=== PATIENT | male | born 1970 | race Caucasian/White ===

== ENCOUNTER 2019-12-25 13:31 | Emergency (ER) | payer OTHER ==
[2019-12-25] MEDS ORDERED: ACETAMINOPHEN 500 MG TAB ONE (13:58)
[2019-12-25] MEDS ORDERED: dexAMETHasone 10 MG/ML VIAL ONE (15:04)
[2019-12-25] MEDS ORDERED: NA CHLORIDE 0.9% 500 ML ONE (15:04)
[2019-12-25 15:43] LABS: Basophils % 0.2 % (0-1.3); Hematocrit 44.9 % (39.6-49.0); Lymphocytes % 12.8 % (15.3-44.8); MPV 8.4 fL (7.6-11.3); RBC Red Blood Cell Count 5.02 M/uL (4.33-5.43)
[2019-12-25 15:44] LABS: ALT/SGPT 38 U/L (12-78); AST/SGOT 30 U/L (15-37); Albumin 3.9 g/dL (3.4-5.0); Alkaline Phosphatase 56 U/L (45-117); BUN Blood Urea Nitrogen 15 mg/dL (7-18); Bicarbonate 26 mmol/L (21-32); Bilirubin Direct 0.3 mg/dL (0-0.2); Bilirubin Total 1.1 mg/dL (0.2-1.0); Ferritin 1565.1 ng/mL (26-388); Glucose Level 95 mg/dL (74-106); Potassium 3.6 mmol/L (3.5-5.1); Protein, Total 8.2 g/dL (6.4-8.2); Sodium Level 140 mmol/L (136-145); Troponin (Emerg Dept Use Only) < 0.02 ng/mL (0.0-0.045)
--- NOTE | 2019-12-25 16:22 | RAD REPORT ---
EXAM DESCRIPTION: RAD - Chest Single View - 12/25/2019 4:01 pm CLINICAL HISTORY: Chest pain;Cough;Dyspnea, positive COVID study December 15 COMPARISON: Two view chest September 29 TECHNIQUE: AP portable chest image was obtained 12/25/2019 4:01 pm . FINDINGS: No dense consolidations seen. Patient has low lung volumes. Patchy airspace changes are ev ident in the left lung field and minimally in the right lung field. In a patient with positive COVID- 19 test, findings are concerning for a mild or early COVID-19 pneumonia. No failure or volume overload. Heart and vasculature are normal. No measurable pleural effusion and n o pneumothorax. No acute bony abnormality seen. No acute aortic findings suspected. IMPRESSION: No dense mass or consolidation. Patient does have some minimal airspace disease. In the setting of a positive COVID-19 test, findings are concerning for early COVID-19 pneumonia.
--- NOTE | 2019-12-25 17:11 | RAD REPORT ---
EXAM DESCRIPTION: CT - Chest For Pe Angio - 12/25/2019 4:51 pm CLINICAL HISTORY: CHEST PAIN COMPARISON: No comparisons TECHNIQUE: Dynamically enhanced 3 mm thick images of the chest were obtained during administration o f approximately 150mL Isovue 370 IV contrast. Coronal and oblique MIP reconstruction images were gene rated and reviewed. Exam utilizes a protocol to evaluate the pulmonary arterial tree. All CT scans are performed using dose optimization technique as appropriate and may include automated exposure control or mA/KV adjustment according to patient size. FINDINGS: No pulmonary emboli are identified. The aorta as imaged shows no acute or suspicious finding. No pericardial thickening or effusion. Interstitial opacification is present in the lung huitron. Numerous areas of ground-glass opacificatio n and airspace consolidation seen in the bilateral upper lobes and bilateral lower lobes. Right middl e lobe is generally spared. Opacification is more peripheral than central. Pattern is well described in COVID-19 pneumonia. No cavitation or suspicious mass lesion. No pleural effusion or pleural thicke mercedes. No mediastinal or hilar suspicious masses. No chest wall masses or abnormal axillary lymphadenopathy. IMPRESSION: No pulmonary emboli identified. Bilateral airspace opacification pattern. This pattern is well described in COVID-19 pneumonia.
[2019-12-25 17:33] LABS: Blood Morphology Comment NOT SEEN (NOT SEEN); Platelet Estimate ADEQ; White Blood Cell Scan OK (OK)
--- NOTE | 2019-12-25 17:35 | ER ---
Nurse's Notes [facility] Name: Sony Borjas Age: 49 yrs Sex: Male : 1970 Arrival Date: 12/25/2019 Time: 13:33 Bed 30 Private MD: Diagnosis: Coronavirus infection, unspecified;Viral pneumonia, unspecified Presentation: 12/24 13:38 Chief complaint: Patient states: COVID+ 12/16/2019. Fever, cough and SOB with exertion ca1 has gotten worse. Htemp Last night was 103.7F. Chest hurts to take a big breath. Just feel worse. Took Tylenol at 0900. Coronavirus screen: chills, cough unrelated to allergies, diarrhea, difficulty breathing, fatigue, fever, headache, muscle pain, nausea, shortness of breath, loss of taste or smell, Client presents with at least one sign or symptom that may indicate coronavirus-19. Standard/surgical mask placed on the client. Provider contacted for isolation considerations. Client reports previous positive COVID test result. Date of collection: December 16, 2019 Staff notified of need for isolation. Ebola Screen: Patient negative for fever greater than or equal to 101.5 degrees Fahrenheit, and additional compatible Ebola Virus Disease symptoms Patient denies exposure to infectious person. Patient denies travel to an Ebola-affected area in the 21 days before illness onset. No symptoms or risks identified at this time. Initial Sepsis Screen: Does the patient meet any 2 criteria? No. Patient's initial sepsis screen is negative. Does the patient have a suspected source of infection? No. Patient's initial sepsis screen is negative. Risk Assessment: Do you want to hurt yourself or someone else? Patient reports no desire to harm self or others. Onset of symptoms was December 25, 2019. 13:38 Method Of Arrival: Ambulatory ca1 13:38 Acuity: BALDO 3 ca1 Historical: - Allergies: 13:43 No Known Allergies; ca1 - Home Meds: 13:43 None [Active]; ca1 - PMHx: 13:43 None; ca1 - PSHx: 13:43 None; ca1 - Immunization history:: Adult Immunizations up to date. - Social history:: Smoking status: Patient denies any tobacco usage or history of. - Family history:: not pertinent. - Hospitalizations: : No recent hospitalization is reported. Screenin:00 Abuse screen: Denies threats or abuse. Denies injuries from another. Nutritional jl7 screening: No deficits noted. Tuberculosis screening: No symptoms or risk factors identified. Fall Risk IV access (20 points). Total Arzola Fall Scale indicates No Risk (0-24 pts). Assessment: 15:00 General: Appears in no apparent distress. uncomfortable, Behavior is calm, cooperative, jl7 appropriate for age. Pain: Complains of pain in all over Quality of pain is described as aching. Neuro: Level of Consciousness is awake, alert, obeys commands, Oriented to person, place, time, situation. Cardiovascular: Denies chest pain, Rhythm is regular. Respiratory: Airway is patent Respiratory effort is even, unlabored, Respiratory pattern is regular, symmetrical, not auscultated. Derm: Skin is diaphoretic, Skin is normal, Skin temperature is warm. 16:00 Reassessment: Patient appears in no apparent distress at this time. No changes from jl7 previously documented assessment. Patient and/or family updated on plan of care and expected duration. Pain level reassessed. Patient is alert, oriented x 3, equal unlabored respirations, skin warm/dry/pink. 17:00 Reassessment: Patient appears in no apparent distress at this time. No changes from jl7 previously documented assessment. Patient and/or family updated on plan of care and expected duration. Pain level reassessed. Patient is alert, oriented x 3, equal unlabored respirations, skin warm/dry/pink. Vital Signs: 13:38 BP 118 / 83; Pulse 105; Resp 20; Temp 101.5(O); Pulse Ox 95% on R/A; Weight 108.86 kg ca1 (R); Height 5 ft. 6 in. (167.64 cm) (R); 16:00 BP 110 / 73; Pulse 90; Resp 19 S; Pulse Ox 96% on R/A; jl7 17:46 BP 112 / 76; Pulse 83; Resp 15; Pulse Ox 94% ; jl7 13:38 Body Mass Index 38.74 (108.86 kg, 167.64 cm) ca1 ED Course: 13:33 Patient arrived in ED. ag5 13:43 Triage completed. ca1 13:43 Arm band placed on right wrist. ca1 14:38 Raman Mari MD is Attending Physician. rn 14:50 Garrett Christina, RN is Primary Nurse. jl7 15:10 Inserted saline lock: 20 gauge in right antecubital area, using aseptic technique. jl7 Blood collected. 15:10 Initial lab(s) drawn, by me, sent to lab. First set of blood cultures drawn by me. jl7 16:00 Patient has correct armband on for positive identification. Placed in gown. Bed in low jl7 position. Call light in reach. Side rails up X 1. groundwater monitoring technician on. Pulse ox on. NIBP on. Warm blanket given. 16:01 CXR XRAY In Process Unspecified. EDMS 16:10 Second set of blood cultures drawn by me. jl7 16:51 CT Chest For PE Angio In Process Unspecified. EDMS 17:47 No provider procedures requiring assistance completed. IV discontinued, intact, jl7 bleeding controlled, No redness/swelling at site. Pressure dressing applied. Administered Medications: 13:48 Drug: Tylenol 1000 mg Route: PO; ca1 16:14 Follow up: Response: No adverse reaction; Temperature is decreased jl7 15:10 Drug: NS 0.9% 500 ml Route: IV; Rate: bolus; Site: right antecubital; jl7 16:14 Follow up: Response: No adverse reaction; IV Status: Completed infusion; IV Intake: jl7 500ml 15:10 Drug: Decadron - Dexamethasone 10 mg Route: IVP; Site: right antecubital; jl7 16:14 Follow up: Response: No adverse reaction jl7 Intake: 16:14 IV: 500ml; Total: 500ml. jl7 Outcome: 17:35 Discharge ordered by . rn 17:47 Discharged to home ambulatory. jl7 17:47 Condition: stable 17:47 Discharge instructions given to patient, Instructed on discharge instructions, follow up and referral plans. medication usage, Demonstrated understanding of instructions, follow-up care, medications, Prescriptions given X 2. 17:48 Patient left the ED. jl7 Signatures: Dispatcher [employer] EDMS Raman Mari MD MD rn Leal, Jahala, RN RN jl7 Anila Calzada RN RN ca1 Rodney, Misa ag5 Corrections: (The following items were deleted from the chart) 13:44 13:38 Chief complaint: Patient states: COVID+ 12/16/2019. Fever, cough and SOB with ca1 exertion has gotten worse. Htemp Last night was 103.7F. Chest hurts to take a big breath. Just feel worse. ca1 16:13 15:00 BP 110 / 73; Pulse 90bpm; Resp 19bpm; Spontaneous; Pulse Ox 96% RA; jl7 jl7
--- NOTE | 2019-12-25 17:36 | EDPHYS ---
Physician Documentation [facility] Name: Sony Borjas Age: 49 yrs Sex: Male : 1970 Arrival Date: 12/25/2019 Time: 13:33 Bed 30 Private MD: ED Physician Raman Mari HPI: 12/24 15:19 This 49 yrs old Male presents to ER via Ambulatory with complaints of Fever, rn Breathing Difficulty, COVID+. 15:19 The patient reports fever, that was measured at 103 degrees Fahrenheit. Onset: The rn symptoms/episode began/occurred 2 week(s) ago. Modifying factors: there are no obvious modifying factors. Associated signs and symptoms: Pertinent positives: cough. Severity of symptoms: At their worst the symptoms were moderate in the emergency department the symptoms are unchanged. The patient has not experienced similar symptoms in the past. Reports diagnosed last week with COVID-19, felt like doing ok, got worse last few days, still high fever to 103s, + cough, + sob. . Historical: - Allergies: 13:43 No Known Allergies; ca1 - Home Meds: 13:43 None [Active]; ca1 - PMHx: 13:43 None; ca1 - PSHx: 13:43 None; ca1 - Immunization history:: Adult Immunizations up to date. - Social history:: Smoking status: Patient denies any tobacco usage or history of. - Family history:: not pertinent. - Hospitalizations: : No recent hospitalization is reported. ROS: 15:19 Constitutional: Negative for weight loss, ENT: Negative for injury, pain, and yarn carrier, Cardiovascular: Negative for palpitations, and edema, Respiratory: + sob and cough Abdomen/GI: Negative for abdominal pain, nausea, vomiting, diarrhea, and constipation, MS/Extremity: Negative for injury and deformity, Skin: Negative for injury, rash, and discoloration, Neuro: Negative for numbness, tingling, and seizure. Exam: 15:20 Constitutional: This is a well developed, well nourished patient who is awake, alert, rn and in no acute distress. Head/Face: Normocephalic, atraumatic. Eyes: Periorbital areas with no swelling, redness, or edema. Cardiovascular: Tachycardic, regular Respiratory: + mild tachypnea, no retractions Abdomen/GI: sof,t non-tender Skin: Warm, dry MS/ Extremity: No cyanosis. Neuro: Awake and alert, GCS 15 16:25 ECG was reviewed by the Attending Physician. rn Vital Signs: 13:38 BP 118 / 83; Pulse 105; Resp 20; Temp 101.5(O); Pulse Ox 95% on R/A; Weight 108.86 kg ca1 (R); Height 5 ft. 6 in. (167.64 cm) (R); 16:00 BP 110 / 73; Pulse 90; Resp 19 S; Pulse Ox 96% on R/A; jl7 17:46 BP 112 / 76; Pulse 83; Resp 15; Pulse Ox 94% ; jl7 13:38 Body Mass Index 38.74 (108.86 kg, 167.64 cm) ca1 MDM: 14:38 Patient medically screened. rn 17:27 Differential diagnosis: URI, pneumonia PE, COVID. Data reviewed: vital signs, nurses rn notes, lab test result(s), radiologic studies, CT scan, plain films, and as a result, I will discharge patient. Counseling: I had a detailed discussion with the patient and/or guardian regarding: the historical points, exam findings, and any diagnostic results supporting the discharge/admit diagnosis, lab results, radiology results, the need for outpatient follow up, to return to the emergency department if symptoms worsen or persist or if there are any questions or concerns that arise at home. Response to treatment: the patient's symptoms have mildly improved after treatment, and as a result, I will discharge patient. Special discussion: I discussed with the patient/guardian in detail that at this point there is no indication for admission to the hospital. It is understood, however, that if the symptoms persist or worsen the patient needs to return immediately for re-evaluation. ED course: Pt with COVID pneumonia, CT neg for PE, Oxygen 95-96%, will dc home with steroids and inhaler. . 12/24 14:40 Order name: Blood Culture Adult (2) rn 12/24 14:40 Order name: BMP; Complete Time: 15:58 rn 12/24 14:40 Order name: C-Reactive Protein; Complete Time: 15:58 rn 12/24 14:40 Order name: CBC with Diff rn 12/24 14:40 Order name: D-Dimer; Complete Time: 15:58 rn 12/24 14:40 Order name: Ferritin; Complete Time: 15:58 rn 12/24 14:40 Order name: Lactate; Complete Time: 15:58 rn 12/24 14:40 Order name: LFT's; Complete Time: 15:58 rn 12/24 14:40 Order name: Procalcitonin; Complete Time: 15:58 rn 12/24 14:40 Order name: Troponin (emerg Dept Use Only); Complete Time: 15:58 rn 12/24 14:40 Order name: CXR XRAY; Complete Time: 16:24 rn 12/24 16:25 Order name: CT Chest For PE Angio; Complete Time: 17:24 rn 12/24 17:33 Order name: CBC Smear Scan EDMS 12/24 14:40 Order name: EKG; Complete Time: 14:41 rn 12/24 14:40 Order name: Cardiac monitoring; Complete Time: 15:15 rn 12/24 14:40 Order name: Droplet/Contact Precautions; Complete Time: 15:15 rn 12/24 14:40 Order name: EKG - Nurse/Tech; Complete Time: 15:14 rn 12/24 14:40 Order name: IV Start; Complete Time: 15:14 rn 12/24 14:40 Order name: Labs collected and sent; Complete Time: 15:14 rn 12/24 14:40 Order name: O2 Per Protocol; Complete Time: 15:14 rn 12/24 14:40 Order name: O2 Sat Monitoring; Complete Time: 15:14 rn EC:25 Rate is 86 beats/min. Rhythm is regular. QRS [place] is Normal. RI interval is normal. QRS rn interval is normal. QT interval is normal. No Q waves. T waves are Normal. No ST changes noted. Clinical impression: Normal ECG. Interpreted by me. Reviewed by me. Administered Medications: 13:48 Drug: Tylenol 1000 mg Route: PO; ca1 16:14 Follow up: Response: No adverse reaction; Temperature is decreased jl7 15:10 Drug: NS 0.9% 500 ml Route: IV; Rate: bolus; Site: right antecubital; jl7 16:14 Follow up: Response: No adverse reaction; IV Status: Completed infusion; IV Intake: jl7 500ml 15:10 Drug: Decadron - Dexamethasone 10 mg Route: IVP; Site: right antecubital; jl7 16:14 Follow up: Response: No adverse reaction jl7 Disposition: 12/25/19 17:35 Discharged to Home. Impression: Coronavirus infection, unspecified, Viral pneumonia, unspecified. - Condition is Stable. - Discharge Instructions: Community-Acquired Pneumonia, Adult, COVID-19. - Prescriptions for dexamethasone 6 mg Oral tablet - take 1 tablet by ORAL route once daily for 10 days; 10 tablet. Albuterol Sulfate 90 mcg/actuation - inhale 1-2 puff by INHALATION route every 4-6 hours; 1 Inhaler. - Medication Reconciliation Form, Thank You Letter, Antibiotic Education, Prescription Opioid Use form. - Follow up: Private Physician; When: As needed; Reason: Recheck today's complaints, Re-evaluation by your physician. - Problem is new. - Symptoms have improved. Signatures: Dispatcher [employer] EDMS Raman Mari MD MD rn Leal, Jahala, RN RN jl7 Anila Calzada RN RN ca1 Corrections: (The following items were deleted from the chart) 15:21 15:19 Constitutional: Negative for weight loss, Cardiovascular: Negative for chest rn pain, palpitations, and edema, Respiratory: + sob and cough Abdomen/GI: Negative for abdominal pain, nausea, vomiting, diarrhea, and constipation, MS/Extremity: Negative for injury and deformity, Skin: Negative for injury, rash, and discoloration, Neuro: Negative for headache, numbness, tingling, and seizure, rn 17:48 17:35 12/25/2019 17:35 Discharged to Home. Impression: Coronavirus infection, jl7 unspecified; Viral pneumonia, unspecified. Condition is Stable. Forms are Medication Reconciliation Form, Thank You Letter, Antibiotic Education, Prescription Opioid Use. Follow up: Private Physician; When: As needed; Reason: Recheck today's complaints, Re-evaluation by your physician. Problem is new. Symptoms have improved. rn
[2019-12-25 18:44] VITALS: TEMP 101.5
[2019-12-25 18:46] VITALS: BP 112/76; O2SAT 94
--- NOTE | 2019-12-26 11:22 | EKG ---
Test Date: 2019-12-25 Test Time: 16:21:46 Saxophone Player: EULALIO MEASUREMENT RESULTS: Intervals: Rate: 86 HI: 168 QRSD: 112 QT: 372 QTc: 445 [place]: P: 44 HI: 168 QRS: 66 T: 36 INTERPRETIVE STATEMENTS: Normal sinus rhythm Normal ECG No previous ECG available for comparison Electronically Signed On 12-26-19 11:20:19 CDT by Chavez Swenson
== END 2019-12-25 17:48 | disposition home or self-care (01) ==
LOC: ER 13:31
DX: U07.1 COVID-19 (principal); J12.9 Viral pneumonia, unspecified
CPT/HCPCS: 96361; 93005; 87040 ×2; 85025; 80048; 36415; 85379; 80076; 83605; 84484; 82728; 84145; 86140; 71275; 71045; 96374; 99284; Q9967; J1100; J7040

== ENCOUNTER 2021-06-18 23:17 | Emergency (ER) | payer BC, OTHER ==
--- OUTSIDE RECORDS SUMMARY | 2021-06-18 23:19 | XMS REPORT | Continuity of Care Document ---
:1970 Author Organization [facility] t Address [address] [place] [address] [address] [place] [address] Care Team Providers Name Role Phone Unavailable Unavailable Unavailable Problems This patient has no known problems. Allergies, Adverse Reactions, Alerts This patient has no known allergies or adverse reactions. Medications This patient has no known medications. Procedures This patient has no known procedures. Encounters Start End Encounter Admission Attending Care Care Encounter Source Date/Time Date/Time Type Type Clinicians Facility Department ID 2021-06-17 2021-06-17 Outpatient PRIV PRIV [id number] 0-2 [facility] 01:34:00 01:34:00 [id number] Medica l Results This patient has no known results.
[2021-06-18] MEDS ORDERED: LORAZEPAM 0.5 MG TABLET ONE (23:59)
[2021-06-19 00:14] LABS: Protime INR 1.15
[2021-06-19 00:19] LABS: Absolute Lymphocytes (CBC) 2.4 K/uL (0.7-4.9); Hematocrit 45.1 % (39.6-49.0); Lymphocytes % 18.8 % (15.3-44.8); MPV 7.7 fL (7.6-11.3); RBC Red Blood Cell Count 5.05 M/uL (4.33-5.43)
[2021-06-19 00:34] LABS: ALT/SGPT 48 U/L (12-78); AST/SGOT 26 U/L (15-37); Albumin 4.1 g/dL (3.4-5.0); Alkaline Phosphatase 58 U/L (45-117); BUN Blood Urea Nitrogen 12 mg/dL (7-18); Bicarbonate 27 mmol/L (21-32); Bilirubin Direct 0.2 mg/dL (0-0.2); Bilirubin Total 0.7 mg/dL (0.2-1.0); Glucose Level 119 mg/dL (74-106); Magnesium 2.3 mg/dL (1.8-2.4); NT PRO-BNP 43 pg/mL (<125); Potassium 3.3 mmol/L (3.5-5.1); Protein, Total 7.9 g/dL (6.4-8.2); Sodium Level 137 mmol/L (136-145)
--- NOTE | 2021-06-19 01:36 | ER ---
Nurse's Notes [facility] Name: Sony Borjas Age: 51 yrs Sex: Male : 1970 Arrival Date: 06/18/2021 Time: 23:21 Bed 20 Private MD: Diagnosis: Chest pain, unspecified;Essential (primary) hypertension Presentation: 06/18 23:25 Chief complaint: Patient states: "I have had chest pain in the past before, but never tw5 this long. It is more of a pressure, not really pain. However when I took my blood pressure it was in the 180's and that is what is giving me concern.". Coronavirus screen: Vaccine status: Patient reports receiving the 2nd dose of the covid vaccine. [place]. Ebola Screen: Patient negative for fever greater than or equal to 101.5 degrees Fahrenheit, and additional compatible Ebola Virus Disease symptoms Patient denies exposure to infectious person. Patient denies travel to an Ebola-affected area in the 21 days before illness onset. Initial Sepsis Screen: Does the patient meet any 2 criteria? No. Patient's initial sepsis screen is negative. Does the patient have a suspected source of infection? No. Patient's initial sepsis screen is negative. Risk Assessment: Do you want to hurt yourself or someone else? Patient reports no desire to harm self or others. Onset of symptoms is unknown. 23:25 Method Of Arrival: Ambulatory tw5 23:25 Acuity: BALDO 2 tw5 Triage Assessment: 23:27 General: Appears in no apparent distress. Behavior is calm, cooperative, appropriate tw5 for age. Pain: Complains of pain in chest Pain currently is 4 out of 10 on a pain scale. Quality of pain is described as pressure. Cardiovascular: Patient's skin is warm and dry. Historical: - Allergies: 23:27 No Known Allergies; tw5 - PMHx: 23:27 None; tw5 - PSHx: 23:27 None; tw5 - Immunization history:: Flu vaccine is up to date. - Social history:: Smoking status: Patient denies any tobacco usage or history of. Screenin/06 00:14 Abuse screen: Denies threats or abuse. Nutritional screening: No deficits noted. vc1 Tuberculosis screening: No symptoms or risk factors identified. Fall Risk None identified. Assessment: 00:08 General: Appears in no apparent distress. comfortable, Behavior is calm, cooperative, vc1 appropriate for age. Pain: Complains of pain in chest Pain does not radiate. Pain began gradually, Is intermittent. Neuro: Level of Consciousness is awake, alert, obeys commands, Oriented to person, place, time, situation, Appropriate for age. 01:59 Reassessment: Patient and/or family updated on plan of care and expected duration. Pain vc1 level reassessed. Patient is alert, oriented x 3, equal unlabored respirations, skin warm/dry/pink. General: Appears in no apparent distress. comfortable, Behavior is calm, cooperative, appropriate for age. Neuro: Level of Consciousness is awake, alert, obeys commands, Oriented to person, place, time, situation, Appropriate for age. Vital Signs: 06/18 23:25 BP 174 / 93; Pulse 92; Resp 18; Temp 98.6; Pulse Ox 99% ; Weight 122.47 kg; Height 5 tw5 ft. 6 in. (167.64 cm); Pain 4/10; 06/19 00:30 BP 138 / 76; Pulse 92; Resp 20; Pulse Ox 95% on R/A; vc1 01:30 BP 143 / 89; Pulse 84; Resp 18; Pulse Ox 97% on R/A; Pain 0/10; vc1 06/18 23:25 Body Mass Index 43.58 (122.47 kg, 167.64 cm) tw5 ED Course: 06/18 23:21 Patient arrived in ED. ja2 23:27 Triage completed. tw5 23:27 Arm band placed on right wrist. tw5 23:30 Jeff Julian NP is PHCP. pm1 23:30 Cory Ross MD is Attending Physician. pm1 23:53 Teagan Spring, KAMILA is Primary Nurse. lp1 23:58 XRAY Chest (1 view) In Process Unspecified. EDMS 06/19 00:07 Initial lab(s) drawn, by me, sent to lab. Inserted saline lock: 20 gauge in right. lt3 00:14 Patient has correct armband on for positive identification. Bed in low position. Call vc1 light in reach. gas regulator repairer on. Pulse ox on. NIBP on. 00:15 Patient maintains SpO2 saturation greater than 95% on room air. vc1 02:21 No provider procedures requiring assistance completed. IV discontinued, intact, vc1 bleeding controlled, No redness/swelling at site. Pressure dressing applied. Administered Medications: 00:08 Drug: Ativan (LORazepam) 0.5 mg Route: PO; vc1 01:31 Follow up: Response: No adverse reaction; Marked relief of symptoms; Blood pressure is vc1 lowered 01:36 Drug: Potassium Chloride 40 mEq Route: PO; vc1 01:58 Follow up: Response: No adverse reaction vc1 Outcome: 01:36 Discharge ordered by MD. pm1 02:21 Discharged to home ambulatory. vc1 02:21 Condition: good 02:21 Discharge instructions given to patient, Instructed on discharge instructions, follow up and referral plans. Demonstrated understanding of instructions, follow-up care. 02:22 Patient left the ED. vc1 Signatures: Dispatcher [employer] EDTeagan Green RN RN lp1 Jeff Julian, SOCIAL SCIENCE PROFESSOR SOCIAL SCIENCE PROFESSOR pm1 Hanh Isabel 2 Yadira Borrero tw5 Lucita Sheets 3 Saranya Garcia RN RN vc1 Corrections: (The following items were deleted from the chart) [id number] 23:27 23:25 Pulse 92bpm; Resp 18bpm; Pulse Ox 99%; Temp 98.6F; 122.47 kg; Height 5 ft. 6 in.; tw5 BMI: 43.5; Pain 4/10; tw5
--- NOTE | 2021-06-19 01:36 | EDPHYS ---
Physician Documentation [facility] Name: Sony Borjas Age: 51 yrs Sex: Male : 1970 Arrival Date: 06/18/2021 Time: 23:21 Bed 20 Private MD: ED Physician Cory Ross HPI: 06/18 23:34 This 51 yrs old Male presents to ER via Ambulatory with complaints of Chest Tightness, pm1 High Blood Pressure, Anxiety. 23:34 The patient or guardian reports chest pain that is located primarily in the mid-sternal pm1 area. Onset: 3 week(s) ago, daily chest pain. Chest pain today onset 1200. The pain does not radiate. Associated signs and symptoms: Pertinent positives: Anxiety, decreased appetite, Pertinent negatives: abdominal pain, diaphoresis, headache, nausea, palpitations, shortness of breath, vomiting. The chest pain is described as burning. Duration: The patient or guardian reports multiple episodes. Modifying factors: the symptoms are aggravated by possibly anxiety. The patient has not recently seen a physician. Historical: - Allergies: 23:27 No Known Allergies; tw5 - PMHx: 23:27 None; tw5 - PSHx: 23:27 None; tw5 - Immunization history:: Flu vaccine is up to date. - Social history:: Smoking status: Patient denies any tobacco usage or history of. ROS: 23:34 Constitutional: Negative for fever, chills, and weight loss. pm1 23:34 Respiratory: Negative for shortness of breath, cough, wheezing, and pleuritic chest pain, Abdomen/GI: Negative for abdominal pain, nausea, vomiting, diarrhea, and constipation, Back: Negative for injury and pain, MS/Extremity: Negative for injury and deformity, Skin: Negative for injury, rash, and discoloration, Neuro: Negative for headache, weakness, numbness, tingling, and seizure. 23:34 Cardiovascular: Positive for chest pain. 23:34 Psych: Positive for anxiety, decreased appetite. 23:34 All other systems are negative. Exam: 23:34 Constitutional: This is a well developed, well nourished patient who is awake, alert, pm1 and in no acute distress. Head/Face: Normocephalic, atraumatic. 23:34 Back: No spinal tenderness. No costovertebral tenderness. Full range of motion. Skin: Warm, dry with normal turgor. Normal color with no rashes, no lesions, and no evidence of cellulitis. MS/ Extremity: Pulses equal, no cyanosis. Neurovascular intact. Full, normal range of motion. 23:34 ENT: Exam is negative for acute changes, Mouth: no acute changes, Lips: normal, moist, Oral mucosa: normal, pink and intact, moist. 23:34 Cardiovascular: Exam negative for acute changes, Rate: normal, Rhythm: regular, Pulses: no pulse deficits are appreciated, Heart sounds: normal, normal S1and S2. 23:34 Respiratory: Exam negative for acute changes, respiratory distress, shortness of breath, Breath sounds: are clear throughout. 23:34 Abdomen/GI: Inspection: obese Palpation: abdomen is soft and non-tender, in all quadrants. 23:34 Neuro: Exam negative for acute changes, Orientation: is normal, Mentation: is normal, Motor: is normal, moves all fours. Vital Signs: 23:25 BP 174 / 93; Pulse 92; Resp 18; Temp 98.6; Pulse Ox 99% ; Weight 122.47 kg; Height 5 tw5 ft. 6 in. (167.64 cm); Pain 4/10; 06/19 00:30 BP 138 / 76; Pulse 92; Resp 20; Pulse Ox 95% on R/A; vc1 01:30 BP 143 / 89; Pulse 84; Resp 18; Pulse Ox 97% on R/A; Pain 0/10; vc1 03 23:25 Body Mass Index 43.58 (122.47 kg, 167.64 cm) tw5 MDM: 06/18 23:33 Patient medically screened. pm1 06/19 01:34 Data reviewed: vital signs. Data interpreted: Pulse oximetry: on room air is 95 %. pm1 Interpretation: normal. Counseling: I had a detailed discussion with the patient and/or guardian regarding: the historical points, exam findings, and any diagnostic results supporting the discharge/admit diagnosis, lab results, radiology results, the need for outpatient follow up, to return to the emergency department if symptoms worsen or persist or if there are any questions or concerns that arise at home. 02:06 ED course: Patient with anxiety driven over fears of dying for the past 3 weeks. He is pm1 worried about leaving his family, kids if he dies. His father around his age. Patient has not discussed his feelings with his and has had changes in work and life balance. Advised open communication with his family and follow up with PCP for further evaluation of stress and hypertension. 06/18 23:31 Order name: Basic Metabolic Panel; Complete Time: 01:05 pm1 06/18 23:31 Order name: CBC with Diff; Complete Time: 01:05 pm1 06/18 23:31 Order name: LFT's; Complete Time: 01:05 pm1 06/18 23:31 Order name: Magnesium; Complete Time: 01:05 pm1 06/18 23:31 Order name: NT PRO-BNP; Complete Time: 01:05 pm1 06/18 23:31 Order name: PT-INR; Complete Time: 00:16 pm1 06/18 23:31 Order name: Troponin HS; Complete Time: 01:05 pm1 03 23:31 Order name: XRAY Chest (1 view) pm1 06/18 23:31 Order name: EKG; Complete Time: 23:31 pm1 03 23:31 Order name: Cardiac monitoring; Complete Time: 23:57 pm1 06/18 23:31 Order name: EKG - Nurse/Tech; Complete Time: 23:57 pm1 06/18 23:31 Order name: IV Saline Lock; Complete Time: 00:07 pm1 03 23:31 Order name: Labs collected and sent; Complete Time: 00:07 pm1 06/18 23:31 Order name: O2 Per Protocol; Complete Time: 00:08 pm1 06/18 23:31 Order name: O2 Sat Monitoring; Complete Time: 00:08 pm1 Administered Medications: 00:08 Drug: Ativan (LORazepam) 0.5 mg Route: PO; vc1 01:31 Follow up: Response: No adverse reaction; Marked relief of symptoms; Blood pressure is vc1 lowered 01:36 Drug: Potassium Chloride 40 mEq Route: PO; vc1 01:58 Follow up: Response: No adverse reaction vc1 Disposition: 05:49 Co-signature as Attending Physician, Cory Ross MD. [email or web address] Disposition Summary: 06/19/21 01:36 Discharge Ordered Location: Home pm1 Problem: new pm1 Symptoms: have improved pm1 Condition: Stable pm1 Diagnosis - Chest pain, unspecified pm1 - Essential (primary) hypertension pm1 Followup: pm1 - With: Emergency Department - When: As needed - Reason: Worsening of condition Followup: pm1 - With: Private Physician - When: 2 - 3 days - Reason: Recheck today's complaints, Continuance of care, Re-evaluation by your physician Discharge Instructions: - Discharge Summary Sheet pm1 - Nonspecific Chest Pain, Adult pm1 - Hypertension, Adult pm1 - How to Take Your Blood Pressure, [id number] pm1 - DASH Eating Plan pm1 - Managing Your Hypertension pm1 Forms: - Medication Reconciliation Form pm1 - Thank You Letter pm1 - Antibiotic Education pm1 - Prescription Opioid Use pm1 Prescriptions: - Hydroxyzine HCl 25 mg Oral Tablet - take 1 tablet by ORAL route every 6 hours As needed; 30 tablet; Refills: 0, pm1 Product Selection Permitted Addendum: 06/20/2021 22:46 Addendum: Patient requesting hydroxyzine, medication for anxiety, that he attributed to p m1 his ER visit chest pain. Will prescribe the patient the medication. Signatures: Dispatcher [employer] Jeff Parra, DIRECTOR INSTITUTION DIRECTOR INSTITUTION pm1 Cory Ross MD MD 7 Yadira Borrero tw5 Saranya Garcia RN RN vc1
[2021-06-19] MEDS ORDERED: POTASSIUM CL SA 10 MEQ TAB PO ONE (01:37)
[2021-06-19 02:27] VITALS: TEMP 98.6
[2021-06-19 02:30] VITALS: BP 143/89; O2SAT 97
--- NOTE | 2021-06-19 07:59 | RAD REPORT ---
EXAM DESCRIPTION: RAD - Chest Single View - 06/18/2021 11:58 pm CLINICAL HISTORY: CHEST PAIN COMPARISON: Portable 12/25/2019 TECHNIQUE: AP portable chest image was obtained 06/18/2021 11:58 pm . FINDINGS: No peripheral mass or consolidation. Interstitial markings and central vasculature are fra ctionally increased over the 2020 comparison. Heart size is normal range for portable imaging and sta ble. No measurable pleural effusion and no pneumothorax. No acute bony abnormality seen. No acute aortic findings suspected. IMPRESSION: Slight increase in the central vasculature and lung markings. No cardiomegaly. Correlation is needed with any findings of early edema or infiltrate.
--- NOTE | 2021-06-19 09:23 | EKG ---
Test Date: 2021-06-18 Test Time: 23:51:08 Centerpuncher: BHAVYA MEASUREMENT RESULTS: Intervals: Rate: 93 KS: 164 QRSD: 116 QT: 364 QTc: 452 [place]: P: 41 KS: 164 QRS: 9 T: 33 INTERPRETIVE STATEMENTS: Sinus rhythm with premature supraventricular complexes Incomplete right bundle branch block Borderline ECG Compared to ECG 12/25/2019 16:21:46 Atrial premature complex(es) now present Incomplete right bundle-branch block now present Electronically Signed On 06-19-21 09:22:42 CERAMIC TILE INSTALLATION HELPER by Chavez Swenson
== END 2021-06-19 02:22 | disposition home or self-care (01) ==
LOC: ER 23:17
DX: I10 Essential (primary) hypertension (principal)
CPT/HCPCS: 36415; 71045; 80048; 80076; 83735; 83880; 84484; 85025; 85610; 93005; 99285

== ENCOUNTER 2022-04-04 15:32 | Observation (INO) | payer BC ==
--- OUTSIDE RECORDS SUMMARY | 2022-04-04 15:34 | XMS REPORT | Continuity of Care Document ---
:[address] [facility] t Address [address] [place] [address] Care Team Providers Name Role Phone Yogesh Brito Attending Clinician Unavailable Charly Farias Attending Clinician [phone] Payers Payer Name Policy Type Policy Number Effective Date Expiration Date S malou [employer] 6 [id number] 2021 [facility] 00:00:00 - [facility]: [facility] [id number] 2021 [facility] (PPO) 00:00:00 Problems Condition Condition Condition Status Onset Resolution Last Treating Co mments Source Name Details Category Date Date Treatment Clinician Date Morbid Morbid Problem Active [facility] obesity Obesity 4-10 Medical 00:00: 00 [id number] Essential Problem Comm on (primary) Spirit hypertensi - [facility] on [facility] [id number] Generalize Problem Com mon d anxiety Spirit disorder - [facility] [id number] Panic Problem Common disorder Spirit [episodic - [facility] paroxysmal anxiety] [facility] [id number] Body mass Problem Com mon index Spirit [BMI] - [facility] 40.0-44.9, [facility] [id number] 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 [id number] Erectile Problem Comm on dysfunctio Spirit n, - [facility] unspecifie [facility] d erectile kes dysfunctio Medica l n type Center [id number] Morbid Problem Commo n 9104 (severe) [facility] obesity - [facility] due to [facility] [id number] Mixed Problem Common hyperlipid [facility] emia [facility] Allergies, Adverse Reactions, Alerts This patient has no known allergies or adverse reactions. Social History Social Habit Start Date Stop Date Quantity Comments Source History of Tobacco Use Co mmon [facility] Sex Assigned At Com mon [facility] Smoking Status Start Date Stop Date Source Never Smoker Common [facility] Medications Ordered Filled Start Stop Current Ordering Indication Dosage Frequency Signature Comments Components Source Medication Medication Date Date Medication? Clinician (SIG) Name Name Nathan Evans 5 2021-04- No Mounjaro 5 MG/0.5ML MG/0.5ML -17 01-21 MG/0.5ML 00:00: 00:00 00 :00 Nathan 5 Nathan 5 2021-04- No Mounjaro 5 MG/0.5ML MG/0.5ML -17 12-15 MG/0.5ML 00:00: 00:00 00 :00 Ondansetron Ondansetron 2021-04 No 1{table Ondansetro HCl 4 MG HCl 4 MG - t_as_ne n HCl 4 MG 00:00: eded} 00 Ondansetron Ondansetron 2021-04 No 1{table Ondansetro HCl 4 MG HCl 4 MG - t_as_ne n HCl 4 MG 00:00: eded} 00 Ondansetron Ondansetron 2021-04 No 1{table Ondansetro HCl 4 MG HCl 4 MG 1-02 t_as_ne n HCl 4 MG 00:00: eded} 00 Nathan Evans 2021-04- No Mounjaro 2.5 2.5 0-17 11-15 2.5 MG/0.5ML MG/0.5ML 00:00: 00:00 MG/0.5ML 00 :00 Tamsulosin Tamsulosin 2021-04- No 1{capsu QD Tamsulosin HCl 0.4 MG HCl 0.4 MG 0-17 11-15 le} HCl 0.4 MG 00:00: 00:00 00 :00 Nathan Pattersonro 2021-04- No Yeseniaro 2.5 2.5 0-17 11-15 2.5 MG/0.5ML MG/0.5ML 00:00: 00:00 MG/0.5ML 00 :00 Tamsulosin Tamsulosin 2021-042- No 1{capsu QD Tamsulosin HCl 0.4 MG HCl 0.4 MG 0-17 11-15 le} HCl 0.4 MG 00:00: 00:00 00 :00 Nathan Pattersonro 2021-04- No Yeseniaro 2.5 2.5 0-17 11-15 2.5 MG/0.5ML MG/0.5ML 00:00: 00:00 MG/0.5ML 00 :00 Tamsulosin Tamsulosin 2021-04- No 1{capsu QD Tamsulosin HCl 0.4 MG HCl 0.4 MG 0-17 11-15 le} HCl 0.4 MG 00:00: 00:00 00 :00 Phentermine Phentermine 2-0 No 1{capsu QD Phentermin HCl 37.5 MG HCl 37.5 MG 9-14 le} e HCl 37.5 00:00: MG 00 Phentermine Phentermine 2-0 No 1{capsu QD Phentermin HCl 30 MG HCl 30 MG 8-18 le} e HCl 30 00:00: MG 00 Phentermine Phentermine 2-0 No 1{capsu QD Phentermin HCl 30 MG HCl 30 MG 8-18 le} e HCl 30 00:00: MG 00 Phentermine Phentermine 2021-0 2- No QD Phentermin HCl 15 MG HCl 15 MG 7-28 08-27 e HCl 15 00:00: 00:00 MG 00 :00 hydrOXYzine hydrOXYzine No 1{table QD hydrOXYzin HCl 50 MG HCl 50 MG t_at_be e HCl 50 dtime_a MG s_neede d} Propranolol Propranolol No 1{table QD Propranolo HCl 40 MG HCl 40 MG t} l HCl 40 MG hydrOXYzine hydrOXYzine No 1{table QD hydrOXYzin HCl 50 MG HCl 50 MG t_at_be e HCl 50 dtime_a MG s_neede d} Propranolol Propranolol No 1{table QD Propranolo HCl 40 MG HCl 40 MG t} l HCl 40 MG Propranolol Propranolol No 1{table QD Propranolo HCl 40 MG HCl 40 MG t} l HCl 40 MG hydrOXYzine hydrOXYzine No 1{table QD hydrOXYzin HCl 50 MG HCl 50 MG t_at_be e HCl 50 dtime_a MG s_neede d} Propranolol Propranolol No 1{table QD Propranolo HCl 40 MG HCl 40 MG t} l HCl 40 MG hydrOXYzine hydrOXYzine No 1{table QD hydrOXYzin HCl 50 MG HCl 50 MG t_at_be e HCl 50 dtime_a MG s_neede d} Propranolol Propranolol No Propranolo HCl 40 MG HCl 40 MG l HCl 40 MG hydrOXYzine hydrOXYzine No 1{table QD hydrOXYzin HCl 50 MG HCl 50 MG t_at_be e HCl 50 dtime_a MG s_neede d} Propranolol Propranolol No Propranolo HCl 40 MG HCl 40 MG l HCl 40 MG Tamsulosin Tamsulosin No Tamsulosin HCl 0.4 MG HCl 0.4 MG HCl 0.4 MG hydrOXYzine hydrOXYzine No 1{table QD hydrOXYzin HCl 50 MG HCl 50 MG t_at_be e HCl 50 dtime_a MG s_neede d} Propranolol Propranolol No 1{table QD Propranolo HCl 40 MG HCl 40 MG t} l HCl 40 MG Tadalafil Tadalafil No 1{table QD Tadalafil 2.5 MG 2.5 MG t} 2.5 MG Propranolol Propranolol No Propranolo HCl 40 MG HCl 40 MG l HCl 40 MG hydrOXYzine hydrOXYzine No 1{table QD hydrOXYzin HCl 50 MG HCl 50 MG t_at_be e HCl 50 dtime_a MG s_neede d} Tamsulosin Tamsulosin No Tamsulosin HCl 0.4 MG HCl 0.4 MG HCl 0.4 MG Propranolol Propranolol No 1{table QD Propranolo HCl 40 MG HCl 40 MG t} l HCl 40 MG hydrOXYzine hydrOXYzine No 1{table QD hydrOXYzin HCl 50 MG HCl 50 MG t_at_be e HCl 50 dtime_a MG s_neede d} hydrOXYzine hydrOXYzine No 1{table QD hydrOXYzin HCl 50 MG HCl 50 MG t_at_be e HCl 50 dtime_a MG s_neede d} Propranolol Propranolol No 1.5{tab QD Propranolo HCl 20 MG HCl 20 MG let} l HCl 20 MG hydrOXYzine hydrOXYzine No 1{table QD hydrOXYzin HCl 50 MG HCl 50 MG t_at_be e HCl 50 dtime_a MG s_neede d} Propranolol Propranolol No 1{table QD Propranolo HCl 40 MG HCl 40 MG t} l HCl 40 MG Propranolol Propranolol No Propranolo HCl 20 MG HCl 20 MG l HCl 20 MG hydroxyzine hydroxyzine No 1 hydroxyzin [facility] HCl 50 mg HCl 50 mg e HCl 50 M edical tablet Take tablet Take mg tablet 1 tablet as 1 tablet as Take 1 needed by needed by tablet as oral route oral route needed by at bedtime at bedtime oral route for 30 for 30 at bedtime days. days. for 30 days. sertraline sertraline No 1 Q1D sertraline [facility] 25 mg 25 mg 25 mg Medical tablet Take tablet Take tablet 1 tablet 1 tablet Take 1 every day every day tablet by oral by oral every day route for route for by oral 30 days. 30 days. route for 30 days. tadalafil tadalafil No 1 Q1D tadalafil [facility] 2.5 mg 2.5 mg 2.5 mg Medical tablet Take tablet Take tablet 1 tablet 1 tablet Take 1 every day every day tablet by oral by oral every day route for route for by oral 90 days. 90 days. route for 90 days. Tadalafil Tadalafil 3- No 1{table QD Tadalafil 2.5 MG 2.5 MG -15 t} 2.5 MG 00:00 :00 Tadalafil Tadalafil 3- No 1{table QD Tadalafil 2.5 MG 2.5 MG 15 t} 2.5 MG 00:00 :00 Tadalafil Tadalafil 3- No 1{table QD Tadalafil 2.5 MG 2.5 MG 15 t} 2.5 MG 00:00 :00 Tadalafil Tadalafil 3- No 1{table QD Tadalafil 2.5 MG 2.5 MG -15 t} 2.5 MG 00:00 :00 Tadalafil Tadalafil 2021- No 1{table QD Tadalafil 2.5 MG 2.5 MG 01-11 t} 2.5 MG 00:00 :00 Tadalafil Tadalafil 2021- No 1{table QD Tadalafil 2.5 MG 2.5 MG 01-11 t} 2.5 MG 00:00 :00 Tadalafil Tadalafil 2021- No 1{table QD Tadalafil 2.5 MG 2.5 MG 01-11 t} 2.5 MG 00:00 :00 Tadalafil Tadalafil 2021- No 1{table QD Tadalafil 2.5 MG 2.5 MG 01-11 t} 2.5 MG 00:00 :00 Tadalafil Tadalafil 2021- No 1{table QD Tadalafil 2.5 MG 2.5 MG 01-11 t} 2.5 MG 00:00 :00 Vital Signs Vital Name Observation Time Observation Value Comments Source height 2022-03-07 13:20:00 66.5 [in_i] [facility] weight 2022-03-07 13:20:00 251.1 [lb_av] [facility] temperature 2022-03-07 13:20:00 97.2 [degF] [facility] bmi 2022-03-07 13:20:00 39.92 kg/m2 [facility] oximetry 2022-03-07 13:20:00 98 % [facility] respiratory rate 2022-03-07 13:20:00 18 /min Comm on [facility] blood pressure 2022-03-07 13:20:00 115 mm[Hg] Common [facility] - systolic [facility] blood pressure 2022-03-07 13:20:00 72 mm[Hg] Common [facility] - diastolic [facility] height 2022-01-30 10:40:00 66.5 [in_i] [facility] weight 2022-01-30 10:40:00 268.1 [lb_av] [facility] temperature 2022-01-30 10:40:00 97.6 [degF] [facility] bmi 2022-01-30 10:40:00 42.62 kg/m2 [facility] oximetry 2022-01-30 10:40:00 97 % Common [facility] respiratory rate 2022-01-30 10:40:00 17 /min Comm on [facility] blood pressure 2022-01-30 10:40:00 134 mm[Hg] Common [facility] - systolic [facility] blood pressure 2022-01-30 10:40:00 72 mm[Hg] Common [facility] - diastolic [facility] height 2021-12-28 10:00:00 66.5 [in_i] Common [facility] weight 2021-12-28 10:00:00 269.7 [lb_av] [facility] temperature 2021-12-28 10:00:00 98.0 [degF] Common [facility] bmi 2021-12-28 10:00:00 42.87 kg/m2 [facility] oximetry 2021-12-28 10:00:00 98 % [facility] respiratory rate 2021-12-28 10:00:00 18 /min Comm on [facility] blood pressure 2021-12-28 10:00:00 137 mm[Hg] Common [facility] - systolic [facility] blood pressure 2021-12-28 10:00:00 82 mm[Hg] Common [facility] - diastolic [facility] height 2021-12-01 09:40:00 66.5 [in_i] Common [facility] weight 2021-12-01 09:40:00 268 [lb_av] [facility] [place] temperature 2021-12-01 09:40:00 97.6 [degF] [facility] bmi 2021-12-01 09:40:00 42.6 kg/m2 Common S pirit [facility] oximetry 2021-12-01 09:40:00 96 % Common S pirit [facility] respiratory rate 2021-12-01 09:40:00 18 /min Comm on [facility] blood pressure 2021-12-01 09:40:00 138 mm[Hg] Common [facility] - systolic [facility] blood pressure 2021-12-01 09:40:00 88 mm[Hg] Common [facility] - diastolic [facility] height 2021-11-10 08:50:00 66.5 [in_i] [facility] weight 2021-11-10 08:50:00 276 [lb_av] Common [facility] temperature 2021-11-10 08:50:00 98.0 [degF] Common [facility] bmi 2021-11-10 08:50:00 43.88 kg/m2 Common S [facility] oximetry 2021-11-10 08:50:00 96 % Common [facility] respiratory rate 2021-11-10 08:50:00 16 /min Comm on [facility] blood pressure 2021-11-10 08:50:00 133 mm[Hg] Common [facility] - systolic [facility] blood pressure 2021-11-10 08:50:00 82 mm[Hg] Common [facility] - diastolic [facility] height 2021-10-13 08:50:00 66 [in_i] [facility] weight 2021-10-13 08:50:00 271.7 [lb_av] Common [facility] temperature 2021-10-13 08:50:00 98.0 [degF] [facility] bmi 2021-10-13 08:50:00 43.85 kg/m2 Common [facility] oximetry 2021-10-13 08:50:00 95 % Common S [facility] respiratory rate 2021-10-13 08:50:00 17 /min Comm on [facility] blood pressure 2021-10-13 08:50:00 142 mm[Hg] Common [facility] - systolic [facility] blood pressure 2021-10-13 08:50:00 87 mm[Hg] Common [facility] - diastolic [facility] BP Diastolic 2021-07-15 00:00:00 90 mm[Hg] [facility] Height 2021-07-15 00:00:00 66 [in_i] [facility] BMI (Body Mass Index) 2021-07-15 00:00:00 43 kg/m2 [facility] Medical BP Systolic 2021-07-15 00:00:00 144 mm[Hg] [facility] Body Weight 2021-07-15 00:00:00 4258 [oz_av] [facility] Procedures This patient has no known procedures. Plan of Care Planned Activity Planned Date Details Comments Source Diagnostic Test Pending 2021-07-15 00:00:00 [facility] plasma [code = TSH, serum or plasma] Encounters Start End Encounter Admission Attending Care Care Encounter Source Date/Time Date/Time Type Type Clinicians Facility Department ID 2021-12-27 Outpatient Brito, STLMLC STLMLC [id number] Common 10:47:03 Yogesh [id number] [facility] 2021-09-14 Outpatient Brito, STLMLC STLMLC [id number] Common 09:08:04 Yogesh [id number] [facility] 2022-03-07 2022-03-07 OFFICE STLC STLC [id number] Co mmon 00:00:00 00:00:00 VISIT EST Spir it PT LEVEL 3 - [facility] 2022-03-02 2022-03-02 (TEL) STLMLC STLMLC [id number] Co mmon 00:00:00 00:00:00 [facility] 2022-02-06 2022-02-06 (TEL) STLMLC STLMLC [id number] Co mmon 00:00:00 00:00:00 [facility] 2022-01-30 2022-01-30 OFFICE STLC STLMLC [id number] Co mmon 00:00:00 00:00:00 VISIT Spirit ESTAB PT - [facility] LEVEL 4 [facility] 2021-12-28 2021-12-28 OFFICE STLMLC STLMLC [id number] Co mmon 00:00:00 00:00:00 VISIT EST Spir it PT LEVEL 3 - CH[facility] 2021-12-13 2021-12-13 (TEL) STLMLC STLMLC [id number] Co mmon 00:00:00 00:00:00 Spirit - [facility] 2021-12-01 2021-12-01 OFFICE STLMLC STLMLC [id number] Co mmon 00:00:00 00:00:00 VISIT EST Spir it PT LEVEL 3 - CH[facility] 2021-11-10 2021-11-10 OFFICE STLMLC STLMLC [id number] Co mmon 00:00:00 00:00:00 VISIT Spirit ESTAB PT - [facility] LEVEL 4 [facility] 2021-10-13 2021-10-13 (WELLNESS) STLMLC STLMLC [id number] Common 00:00:00 00:00:00 Wellness Spiri t Visit - [facility] 2021-07-18 2021-07-18 Outpatient PRIV PRIV [id number] [facility] 11:26:00 11:26:00 [id number] Medica l 2021-07-15 2021-07-15 Outpatient PRIV PRIV [id number] [facility] 03:24:00 03:24:00 [id number] Medica l 2021-07-15 2021-07-15 Outpatient [facility] PRIV PRIV [id number] 00:00:00 00:00:00 , Charly Costa [id number] 2021-07-15 2021-07-15 Charly Costa [facility] 00:00:00 00:00:00 [facility] misael maher MD: [id number] [place] [address] , Ph. 2021-07-14 2021-07-14 Outpatient PRIV PRIV [id number] [facility] 11:49:00 11:49:00 [id number] Medica l 2021-06-17 2021-06-17 Outpatient PRIV PRIV [id number] [facility] 01:34:00 01:34:00 [id number] Medica l Results Test Description Test Time Test Comments Results Result Comments Source [facility] 2021-11-05 00:00:00 result Thyrotropin [Units/volume] in Serum or Plasma 2021-07-18 00: 00:00 Test Item Value Reference Range Interpretation Comme nts TSH (test code = TSH) 1.260 uIU/mL 0.178-4.530 [facility]
[2022-04-04 16:05] LABS: Absolute Lymphocytes (CBC) 1.9 K/uL (0.7-4.9); Hematocrit 47.7 % (39.6-49.0); Lymphocytes % 19.6 % (15.3-44.8)
[2022-04-04 16:22] LABS: Albumin 4.2 g/dL (3.4-5.0); Bilirubin Total 1.1 mg/dL (0.2-1.0); Potassium 3.7 mmol/L (3.5-5.1); Protein, Total 7.7 g/dL (6.4-8.2)
--- NOTE | 2022-04-04 17:20 | RAD REPORT ---
EXAM DESCRIPTION: CTAbdomen Pelvis W Contrast - 04/04/2022 5:02 pm CLINICAL HISTORY: Abdominal pain. Abdominal pain COMPARISON: Abdomen 1 View (KUB) dated 03/26/2022No comparisons TECHNIQUE: Biphasic CT imaging of the abdomen and pelvis was performed with 100 ml non-ionic IV cont rast. All CT scans are performed using dose optimization technique as appropriate and may include automated exposure control or mA/KV adjustment according to patient size. FINDINGS: The lung bases are clear.Small hiatal hernia. The liver, spleen, pancreas, left adrenal gland and kidneys are within normal limits. 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 Multiple dilated small bowel loops are present, largest measuring up to 3.9 cm. Sigmoid diverticulosi s coli without diverticulitis. The appendix is normal. No evidence of significant lymphadenopathy. No suspicious bony findings. IMPRESSION: Mildly to moderately dilated and fluid-filled small bowel loops in the central abdomen m ay represent enteritis or developing small bowel obstruction. Follow-up imaging in 24-48 hours could be obtained to evaluate for progression. Sigmoid diverticulosis coli without diverticulitis.
--- NOTE | 2022-04-04 17:36 | EDPHYS ---
Physician Documentation [facility] Name: Sony Borjas Age: 51 yrs Sex: Male : 1970 Arrival Date: 04/04/2022 Time: 15:36 Bed 19 Private MD: ED Physician Iván Luther HPI: 04/04 15:47 This 51 yrs old Male presents to ER via Ambulatory with complaints of Abdominal Pain, ms3 Constipation, Vomiting. 15:47 The patient presents to the emergency department with nausea, vomiting, that is ms3 intermittent, described as undigested food, abdominal pain, of the abdomen diffusely, described as pressure, and does not radiate. Onset: The symptoms/episode began/occurred yesterday. Possible causes: unknown. The symptoms are aggravated by food , The symptoms are alleviated by nothing. Associated signs and symptoms: Pertinent positives: abdominal pain, nausea, vomiting, Pertinent negatives: fever. Severity of symptoms: At their worst the symptoms were severe in the emergency department the symptoms have improved Pain is currently a 5 / 10. Historical: - Allergies: 15:47 No Known Allergies; jl7 - Home Meds: 15:47 Propranolol Oral [Active]; Cialis oral [Active]; Hydroxyzine Oral [Active]; jl7 - PMHx: 15:47 BPH; HTN; Anxiety; jl7 - PSHx: 15:47 None; jl7 - Immunization history:: Client reports receiving the 2nd dose of the Covid vaccine. - Social history:: Smoking status: Patient denies any tobacco usage or history of. ROS: 15:47 Constitutional: Negative for fever, and chills. Neck: Negative for injury, pain, and ms3 swelling, Cardiovascular: Negative for chest pain, and palpitations. Respiratory: Negative for shortness of breath, cough, wheezing, and pleuritic chest pain. 15:47 Skin: Negative for injury, rash, and discoloration. 15:47 Abdomen/GI: Positive for abdominal pain, nausea and vomiting. 15:47 All other systems are negative. Exam: 15:47 Constitutional: This is a well developed, well nourished patient who is awake, alert, ms3 and in no acute distress. Head/Face: Normocephalic, atraumatic. Eyes: Pupils equal round and reactive to light, extra-ocular motions intact. Lids and lashes normal. Conjunctiva and sclera are non-icteric and not injected. Periorbital areas with no swelling, redness, or edema. Neck: Trachea midline, no cervical lymphadenopathy. Supple, full range of motion without nuchal rigidity, or vertebral point tenderness. No Meningismus. Chest/axilla: Normal chest wall appearance and motion. Nontender with no deformity. Cardiovascular: Regular rate and rhythm with a normal S1 and S2. No gallops, murmurs, or rubs. Normal PMI, no JVD. No pulse deficits. Respiratory: Lungs have equal breath sounds bilaterally, clear to auscultation and percussion. No rales, rhonchi or wheezes noted. No increased work of breathing, no retractions or nasal flaring. Back: No spinal tenderness. No costovertebral tenderness. Full range of motion. Skin: Warm, dry with normal turgor. Normal color with no rashes, no lesions, and no evidence of cellulitis. MS/ Extremity: Pulses equal, no cyanosis. Neurovascular intact. Full, normal range of motion. 15:47 Abdomen/GI: Inspection: obese Bowel sounds: normal, Palpation: abdomen is soft and non-tender. Vital Signs: 15:45 BP 136 / 102; Pulse 104; Resp 19; Temp 98.2(O); Pulse Ox 100% on R/A; Weight 111.13 kg; jl7 Height 5 ft. 6 in. (167.64 cm); Pain 7/10; 17:42 BP 129 / 91 LA Sitting (auto/lg); Pulse 90 MON; Resp 16 S; Pulse Ox 94% ; ko1 19:11 BP 124 / 69; Pulse 83; Resp 17 S; Pulse Ox 98% on R/A; as6 15:45 Body Mass Index 39.54 (111.13 kg, 167.64 cm) jl7 MDM: 15:45 Patient medically screened. ms3 15:47 Differential diagnosis: Nonspecific abd pain, bowel obstruction vs constipation. ms3 18:18 Data reviewed: vital signs, nurses notes, lab test result(s), radiologic studies, and ms3 as a result, I will admit patient. Counseling: I had a detailed discussion with the patient and/or guardian regarding: the historical points, exam findings, and any diagnostic results supporting the discharge/admit diagnosis, lab results, radiology results, the need for further work-up and treatment in the hospital. ED course: Discussed case with Karsten Briscoe NP, and he accepts patient on behalf of Dr Abad. All questions answered. Discussed plan with patient and he understands/agrees with plan.. 04/04 15:47 Order name: CBC with Diff; Complete Time: 16:32 ms3 04/04 15:47 Order name: CMP; Complete Time: 16:32 ms3 04/04 15:47 Order name: Lipase; Complete Time: 16:32 ms3 04/04 15:47 Order name: CT Abd/Pelvis - IV Contrast Only; Complete Time: 17:31 ms3 04/04 18:03 Order name: SARS RAPID iw 04/04 15:47 Order name: IV Saline Lock; Complete Time: 15:59 ms3 04/04 15:47 Order name: Labs collected and sent; Complete Time: 15:59 ms3 Administered Medications: 17:47 Drug: Lactated Ringers Solution 1000 ml Route: IV; Rate: 150 ml/hr; Site: right ko1 antecubital; 19:54 Follow up: Response: No adverse reaction; IV Status: Infusion continued upon admission; as6 IV Intake: 350ml Disposition Summary: 04/04/22 17:36 Hospitalization Ordered Hospitalization Status: Observation ms3 Provider: Erick Abad ms3 Location: Telemetry/[facility] (observation) ms3 Condition: Stable ms3 Problem: new ms3 Symptoms: are unchanged ms3 Bed/Room Type: Standard ms3 Room Assignment: 210(04/04/22 19:15) dw Diagnosis - Small bowel obstruction ms3 - Vomiting, unspecified ms3 - Abdominal pain, Generalized ms3 Forms: - Medication Reconciliation Form ms3 - SBAR form ms3 Signatures: Dispatcher [employer] Camilla Moran RN RN Garrett Foster RN RN [id number] Iván Luther DO DO ms3 Tracey Sanchez RN RN ko1 Alvin Valenzuela RN as6 Corrections: (The following items were deleted from the chart) 19:15 17:36 ms3 dw
--- NOTE | 2022-04-04 17:36 | ER ---
Nurse's Notes [facility] Name: Sony Borjas Age: 51 yrs Sex: Male : 1970 Arrival Date: 04/04/2022 Time: 15:36 Bed 19 Private MD: Diagnosis: Small bowel obstruction;Vomiting, unspecified;Abdominal pain, Generalized Presentation: 04/04 15:45 Chief complaint: Patient states: Abdominal pain, N/V/C for a while, worsening over the jl7 last few days. Coronavirus screen: Vaccine status: Patient reports receiving the 2nd dose of the covid vaccine. Ebola Screen: No symptoms or risks identified at this time. Initial Sepsis Screen: Does the patient meet any 2 criteria? No. Patient's initial sepsis screen is negative. Does the patient have a suspected source of infection? No. Patient's initial sepsis screen is negative. Risk Assessment: Do you want to hurt yourself or someone else? Patient reports no desire to harm self or others. Onset of symptoms is unknown. 15:45 Method Of Arrival: Ambulatory jl7 15:45 Acuity: BALDO 3 jl7 Triage Assessment: 15:47 General: Appears in no apparent distress. uncomfortable, Behavior is calm, cooperative, jl7 appropriate for age. Pain: Complains of pain in abdomen Pain currently is 7 out of 10 on a pain scale. GI: Reports constipation, diarrhea, nausea, vomiting. Historical: - Allergies: 15:47 No Known Allergies; jl7 - Home Meds: 15:47 Propranolol Oral [Active]; Cialis oral [Active]; Hydroxyzine Oral [Active]; jl7 - PMHx: 15:47 BPH; HTN; Anxiety; jl7 - PSHx: 15:47 None; jl7 - Immunization history:: Client reports receiving the 2nd dose of the Covid vaccine. - Social history:: Smoking status: Patient denies any tobacco usage or history of. Screenin:47 [facility] ED Fall Risk Assessment (Adult) History of falling in the last 3 months, ko1 including since admission No falls in past 3 months (0 pts) Confusion or Disorientation No (0 pts) Intoxicated or Sedated No (0 pts) Impaired Gait No (0 pts) Mobility Assist Device Used No (0 pt) Altered Elimination No (0 pt) Score/Fall Risk Level 0 - 2 = Low Risk. Humpty Dumpty Scale Fall Assessment Tool (age< 18yrs) Age 13 years and above (1 pt). Abuse screen: Denies threats or abuse. Denies injuries from another. Nutritional screening: No deficits noted. Tuberculosis screening: No symptoms or risk factors identified. Fall Risk No fall in past 12 months (0 pts). Assessment: 15:47 General: Appears in no apparent distress. uncomfortable, Behavior is calm, cooperative, ko1 appropriate for age. Pain: Complains of pain in abdomen. Neuro: No deficits noted. Cardiovascular: No deficits noted. Respiratory: No deficits noted. GI: Bowel sounds present X 4 quads. Abd is soft X 4 quads Reports constipation, nausea, vomiting. : No deficits noted. EENT: No deficits noted. Derm: No deficits noted. Musculoskeletal: No deficits noted. 19:11 Reassessment: Patient appears in no apparent distress at this time. no complaints or as6 concerns at this time. Vital Signs: 15:45 BP 136 / 102; Pulse 104; Resp 19; Temp 98.2(O); Pulse Ox 100% on R/A; Weight 111.13 kg; jl7 Height 5 ft. 6 in. (167.64 cm); Pain 7/10; 17:42 BP 129 / 91 LA Sitting (auto/lg); Pulse 90 MON; Resp 16 S; Pulse Ox 94% ; ko1 19:11 BP 124 / 69; Pulse 83; Resp 17 S; Pulse Ox 98% on R/A; as6 15:45 Body Mass Index 39.54 (111.13 kg, 167.64 cm) jl7 ED Course: 15:36 Patient arrived in ED. jm9 15:37 Iván Luther DO is Attending Physician. ms3 15:37 Ryan Paulino PA is PHCP. cp 15:39 Tracey Sanchez, RN is Primary Nurse. ko1 15:47 Triage completed. jl7 15:47 Arm band placed on right wrist. jl7 15:47 Patient has correct armband on for positive identification. Bed in low position. Call ko1 light in reach. Side rails up X 1. Pulse ox on. NIBP on. 15:55 Inserted saline lock: 20 gauge in right antecubital area, using aseptic technique. ko1 Blood collected. 15:59 CBC with Diff Sent. ko1 15:59 CMP Sent. ko1 15:59 Lipase Sent. ko1 17:04 CT Abd/Pelvis - IV Contrast Only In Process Unspecified. EDMS 17:35 Erick Abad MD is Hospitalizing Provider. ms3 19:12 No provider procedures requiring assistance completed. Patient admitted, IV remains in as6 place. 19:43 Primary Nurse role handed off by Tracey Sanchez, KAMILA as6 19:43 Alvin Valenzuela, KAMILA is Primary Nurse. as6 Administered Medications: 17:47 Drug: Lactated Ringers Solution 1000 ml Route: IV; Rate: 150 ml/hr; Site: right ko1 antecubital; 19:54 Follow up: Response: No adverse reaction; IV Status: Infusion continued upon admission; as6 IV Intake: 350ml Medication: 19:12 VIS not applicable for this client. as6 Intake: 19:54 IV: 350ml; Total: 350ml. as6 Outcome: 17:36 Decision to Hospitalize by Provider. ms3 19:20 Condition: stable as6 19:20 Instructed on the need for admit. 19:54 Admitted to Med/surg accompanied by nurse, via wheelchair, room 210, with chart, Report as6 called to Rashida TREVIÑO 19:55 Patient left the ED. as6 Signatures: Dispatcher [employer] EDMS Ryan Paulino PA PA cp Leal, Jahala, RN RN jl7 Iván Luther DO DO ms3 Kailey Owens jm9 Alvin Valenzuela, KAMILA RN as6 Tracey Sanchez, RN RN ko1
[2022-04-04] MEDS ORDERED: Ringers Lactate 1,000 ML IV ONE (17:46)
--- NOTE | 2022-04-04 18:35 | P.HP ---
Certification for Inpatient Patient admitted to: Observation With expected LOS: <2 Midnights Patient will require the following post-hospital care: None Practitioner: I am a practitioner with admitting privileges, knowledge of patient current condition, hospital course, and medical plan of care. Services: Services provided to patient in accordance with Admission requirements found in Title 42 Section 412.3 of the Code of Federal Regulations <Karsten Briscoe - Last Filed: 04/04/22 18:30> Patient History Date of Service: 04/04/22 Reason for admission: SBO History of Present Illness: 51-year-old male with history of hypertension presents emergency department for 2 days of nausea/vomiting/constipation. He denies any previous surgical history his labs were significant for mild elevated T bili1.1 CT abdomen pelvis with IV contrast showed enteritis versus possible early small bowel obstruction. Throughout multiple times a day, last bowel movement was yesterday. ED provider wishes to admit under observation for abdominal pain, vomiting, possible early SBO. - Past Medical/Surgical History -: HTN -: None Psychosocial/ Personal History: Works as a [employer], lives with family. - Family History Father -: Heart disease Mother -: Heart disease, Stroke - Social History Smoking Status: Never smoker Alcohol use: No CD- Drugs: No Caffeine use: Yes Place of Residence: Home <Karsten Briscoe - Last Filed: 04/04/22 18:30> Date of Service: 04/05/22 <Erick Abad - Last Filed: 04/05/22 20:28> Review of Systems 10-point ROS is otherwise unremarkable Gastrointestinal: Nausea, Vomiting, Abdominal Pain, Constipation <Karsten Briscoe - Last Filed: 04/04/22 18:30> Physical Examination - Physical Exam General: Alert, In no apparent distress, Oriented x3 HEENT: Atraumatic, PERRLA, Mucous membr. moist/pink, EOMI, Sclerae nonicteric Neck: Supple, 2+ carotid pulse no bruit, No LAD, Without JVD or thyroid abnormality Respiratory: Clear to auscultation bilaterally, Normal air movement Cardiovascular: Regular rate/rhythm, Normal S1 S2 Capillary refill: <2 Seconds Gastrointestinal: Hyperactive, Tenderness (Mild generalized abd tenderness) Musculoskeletal: No tenderness Integumentary: No rashes Neurological: Normal speech, Normal strength at 5/5 x4 extr, Normal tone, Normal affect - Studies Laboratory Data (last 24 hrs) 04/04/22 15:55: Sodium 138, Potassium 3.7, BUN 12, Creatinine 0.91, Glucose 105, Total Bilirubin 1.1 H, AST 24, ALT 38, Alkaline Phosphatase 64, Lipase 139 04/04/22 15:55: WBC 9.80, Hgb 16.6, Hct 47.7, Plt Count 236 <Karsten Briscoe - Last Filed: 04/04/22 18:30> Assessment and Plan - Plan Assessment: Abdominal pain, vomiting enteritis versus early SBO HTN Plan: Abdominal pain, vomiting enteritis versus early SBO: NPO, IVF, cipro/flagyl, surgical consult, KUB in AM. Encourage ambulation, PRN pain meds and antiemetics. Abd non-distended, no active vomiting at this time. HTN: Hold oral meds tonight, restart when appropriate. DVT PPX: Lovenox Code status:full Discharge Plan: Home Plan to discharge in: 24 Hours - Advance Directives Does patient have a Living Will: No Does patient have a Durable POA for Healthcare: No - Code Status/Comfort Care Code Status Assessed: Yes (Full code) Critical Care: No Time Spent Managing Pts Care (In Minutes): 50 <Karsten Briscoe - Last Filed: 04/04/22 18:30> Physician Review: Patient Assessed, Agree with Above Assessment and Plan <Erick Abad - Last Filed: 04/05/22 20:28>
[2022-04-04 18:50] LABS: SARS-CoV-2 Antigen Rapid Res Negative (Negative)
[2022-04-04] MEDS ORDERED: ONDANSETRON 4 MG/2 ML VIAL IV PRN (20:07)
[2022-04-04] MEDS: Ringers Lactate 1,000 ML IV SCH (20:07)
[2022-04-04] MEDS ORDERED: MORPHINE 2 MG/ML SYR IV PRN (20:07)
[2022-04-04] MEDS: CIPROFLOXACIN 400mg IV 400 MG/200 ML BAG IV SCH (21:05)
[2022-04-04 21:16] VITALS: BMI 39.5
[2022-04-05] MEDS: METRONIDAZOLE 500mg IVPB 500 MG/100 ML BAG IV SCH ×3 (01:05→16:16)
[2022-04-05] MEDS: Ringers Lactate 1,000 ML IV SCH ×2 (05:42→18:19)
[2022-04-05 06:00] LABS: Absolute Lymphocytes (CBC) 2.3 K/uL (0.7-4.9); Hematocrit 42.8 % (39.6-49.0); MCV 89.7 fL (80-100); MPV 7.9 fL (7.6-11.3); RBC Red Blood Cell Count 4.77 M/uL (4.33-5.43)
[2022-04-05 06:13] LABS: Potassium 3.6 mmol/L (3.5-5.1)
[2022-04-05] MEDS: ENOXAPARIN 40 MG/0.4 ML SQ SCH (08:03)
--- NOTE | 2022-04-05 08:35 | RAD REPORT ---
EXAM DESCRIPTION: RAD - Abdomen 1 View (KUB) - 04/05/2022 5:23 am CLINICAL HISTORY: sbo Pain COMPARISON: No comparisons FINDINGS: The bowel gas pattern is non-obstructive. No evidence of free air or pneumatosis. No suspi cious calcifications. No significant bony findings. IMPRESSION: Nonobstructive bowel-gas pattern.
[2022-04-05] MEDS: KCL 20 MEQ/100 mL IVPB 20 MEQ/100 ML BAG IV SCH ×2 (09:00→09:23)
[2022-04-05] MEDS: CIPROFLOXACIN 400mg IV 400 MG/200 ML BAG IV SCH ×2 (09:22→21:18)
--- NOTE | 2022-04-05 18:32 | CON ---
Date of Consultation: 04/05/2022 Diagnosis: Abdominal pain. History Of Present Illness: This is the case of a 51-year-old patient who comes to the hospital with a 2-day history of nausea and vomiting. The last time he ate was some soup from a Souffle. He stat ed that when he tried to eat again and get some water, not only the soup came up, but also the water he just took. He didn't feel better. He was bloated, came to the ER last night and was diagnosed wi th enteritis versus bowel obstruction, and a surgical consult was obtained. He feels better right no w. No nausea or vomiting. Review of Systems: Noted see H and P. No hematuria, hematochezia. No melena. No previous colonoscopy. The patient wa s advised about colonoscopy. Family History: Includes father with heart disease and stroke. Social History: He does not smoke. He does not drink alcohol. Past Medical History: Hypertension. Physical Examination: General: The patient is awake and alert. Eyes: Pupils are equal and reactive. Anicteric. Neck: Supple. Chest: Clear. Abdomen: Soft and depressible, but no guarding or rebound. No peritoneal signs. Rectal: Deferred. Extremities: Good capillary refill. Laboratory Data: The CAT scan was reviewed with the patient. Also, the KUB done this morning with i mprovement of the pattern on the small bowel. White count is 8.1 with hemoglobin of 15, and bicarb i s 27. Assessment: Enteritis versus a partial small-bowel obstruction, although it seems to be improved rig ht now. He is passing gas. No nausea, no vomiting. Plan: So, we are going to start giving him fluid. As an outpatient we recommend him to see the yemi roenterologist, trying to find the etiology of this event. Also, I advised the importance of colonos copy. No surgical intervention planned for today. HM/MODL Voice ID: [id number] Report ID: [id number]
--- NOTE | 2022-04-05 20:30 | P.PN ---
Subjective Date of Service: 04/05/22 Chief Complaint: SBO No acute events overnight. He reports that his abdominal pain is still present, but has improved significantly since admission. He denies nausea/vomiting. He reports that he is passing flatus and stool. Review of Systems 10-point ROS is otherwise unremarkable Gastrointestinal: Abdominal Pain Physical Examination - Vital Signs Temperature: 98.5 F Blood Pressure: 127/74 Pulse: 78 Respirations: 18 Pulse Ox (%): 97 - Physical Exam General: Alert, In no apparent distress, Oriented x3 HEENT: Atraumatic, Mucous membr. moist/pink, EOMI, Sclerae nonicteric Neck: JVD not distended Respiratory: Clear to auscultation bilaterally, Normal air movement Cardiovascular: No edema, Regular rate/rhythm, Normal S1 S2, No gallops, No rubs, No murmurs Gastrointestinal: Hypoactive, Soft and benign, Non-distended, No rebound, No guarding, Tenderness (minimal, generalized) Musculoskeletal: No clubbing Integumentary: No rashes Neurological: Normal speech, Cranial nerves 3-12 intact, Normal affect Assessment And Plan - Plan # Suspect Early Partial Small Bowel Obstruction vs Acute Enteritis # Sigmoid Diverticulosis - CT abdomen/pelvis = "mildly to moderately dilated and fluid-filled small bowel loops in the central abdomen may represent enteritis or developing small bowel obstruction. Follow-up imaging in 24-48 hours could be obtained to evaluate for progression. Sigmoid diverticulosis coli without diverticulitis." - Consulted Gastroenterology and spoke with Dr. Barrera - recommendations appreciated - NG tube not placed due to no nausea/vomiting - PRN symptom control - Lactated Ringers' @ 100 mL/hr - NPO pending Surgery recs - if surgery is not recommended, start clear liquid diet and advance as tolerated - Continue ciprofloxacin + metronidazole - Will require Gasteroenterology evaluation +/- colonoscopy as an outpatient # Hypertension - Resume home medications once verified Erick Abad M.D.
[2022-04-05 23:20] VITALS: O2SAT 97
[2022-04-06] MEDS: METRONIDAZOLE 500mg IVPB 500 MG/100 ML BAG IV SCH ×2 (00:05→08:40)
[2022-04-06] MEDS: Ringers Lactate 1,000 ML IV SCH ×2 (02:07→06:02)
[2022-04-06 04:27] LABS: Albumin 3.6 g/dL (3.4-5.0); Bilirubin Total 0.9 mg/dL (0.2-1.0); Potassium 3.6 mmol/L (3.5-5.1); Protein, Total 6.5 g/dL (6.4-8.2)
[2022-04-06] MEDS: CIPROFLOXACIN 400mg IV 400 MG/200 ML BAG IV SCH (08:40)
[2022-04-06] MEDS: ENOXAPARIN 40 MG/0.4 ML SQ SCH (08:41)
[2022-04-06] MEDS ORDERED: POTASSIUM 25 MEQ EFFERV TAB PO ONE (09:00)
[2022-04-06 12:39] VITALS: BP 142/83; TEMP 97.7
--- NOTE | 2022-04-06 13:55 | P.DS ---
Admission Date: 04/04/22 Discharge Date: 04/06/22 Disposition: ROUTINE DISCHARGE Discharge Condition: GOOD Reason for Admission: SBO Consultations: 1. General Surgery Hospital Course: DIAGNOSES: # Suspect Early Partial Small Bowel Obstruction vs Acute Enteritis # Sigmoid Diverticulosis # Hypertension HOSPITAL COURSE: Mr. Sony Borjas is a pleasant 51-year-old male with a past medical history significant for hypertension who was admitted to the [facility] on 04/04/2022 for abdominal pain. He was admitted to the Medicine service. A CT abdomen/pelvis revealed, "mildly to moderately dilated and fluid-filled small bowel loops in the central abdomen may represent enteritis or developing small bowel obstruction. Follow-up imaging in 24-48 hours could be obtained to evaluate for progression. Sigmoid diverticulosis coli without diverticulitis." General Surgery was consulted he was evaluated by Dr. Barrera. It was felt that no surgical intervention was required. Over the course of his hospitalization, his symptoms improved significantly and he was able to tolerate a regular diet. He has been cleared for discharge, and the importance of a colonoscopy was emphasized to evaluate a potential etiology of his symptoms. He verbalized understanding and agreed to make this appointment. On 04/06/2022, he was seen on morning rounds and deemed medically stable for discharge. He was discharged with instructions to schedule follow-up appointments with his PCP (Dr. Brito) and with Gastroenterology (Dr. Salas). He was provided prescriptions for ciprofloxacin and metronidazole. He was given the opportunity to ask questions and reported no further questions. Furthermore, all questions were answered to the best of my ability. A copy of this discharge summary will be sent to the above providers to facilitate continuity of care. Today, I personally spent 25 minutes on his case, of which greater than 50% of the time was spent in patient education, counseling, and coordination of care as described above. Vital Signs/Physical Exam: Temp Pulse Resp BP Pulse Ox 97.7 F 84 18 142/83 H 97 04/06/22 12:00 04/06/22 12:00 04/06/22 12:00 04/06/22 12:00 04/06/22 12:00 General: Alert, In no apparent distress, Oriented x3 HEENT: Atraumatic, Mucous membr. moist/pink, EOMI, Sclerae nonicteric Neck: JVD not distended Respiratory: Clear to auscultation bilaterally, Normal air movement Cardiovascular: No edema, Regular rate/rhythm, Normal S1 S2, No gallops, No rubs, No murmurs Gastrointestinal: Normal bowel sounds, Soft and benign, Non-distended, No tenderness, No rebound, No guarding Musculoskeletal: No clubbing Integumentary: No rashes Neurological: Normal speech, Normal affect Laboratory Data at Discharge: WBC 8.10 K/uL (4.3-10.9) 04/05/22 05:21 Hgb 15.0 g/dL (13.6-17.9) D 04/05/22 05:21 Hct 42.8 % (39.6-49.0) 04/05/22 05:21 Plt Count 196 K/uL (152-406) 04/05/22 05:21 Sodium 139 mmol/L (136-145) 04/06/22 03:20 Potassium 3.6 mmol/L (3.5-5.1) 04/06/22 03:20 BUN 8 mg/dL (7-18) 04/06/22 03:20 Creatinine 0.83 mg/dL (0.70-1.30) 04/06/22 03:20 Glucose 85 mg/dL (74-106) 04/06/22 03:20 Total Bilirubin 0.9 mg/dL (0.2-1.0) 04/06/22 03:20 AST 19 U/L (15-37) 04/06/22 03:20 ALT 34 U/L (16-61) 04/06/22 03:20 Alkaline Phosphatase 53 U/L (45-117) 04/06/22 03:20 Lipase 139 U/L (73-393) 04/04/22 15:55 Home Medications: RX: Propranolol [Inderal*] 40 mg PO DAILY 04/05/22 RX: Tadalafil [Cialis] 2.5 mg PO DAILY 04/05/22 Ciprofloxacin HCl [Cipro] 500 mg PO BID 7 Days #14 tab 04/06/22 metroNIDAZOLE [Flagyl] 500 mg PO Q8H 7 Days #21 tab 04/06/22 New Medications: Ciprofloxacin HCl [Cipro] 500 mg PO BID 7 Days #14 tab metroNIDAZOLE [Flagyl] 500 mg PO Q8H 7 Days #21 tab Physician Discharge Instructions: 1. Please call and schedule a follow-up appointment with your PCP (Dr. Brito) in 3-5 days 2. Please call and schedule a follow-up appointment with Gastroenterology (Dr. Salas) in 1-2 weeks - As we discussed, you will need to schedule a colonoscopy in 4-6 weeks to exclude cancer as the cause of your bowel inflammation Diet: Regular Activity: Ad jerrell Followup: Yogesh Brito, [Primary Care Provider] - (call to schedule appointment) Apollo Salas MD [ACTIVE - CAN ADMIT] - (Call to schedule appointment.) Time spent managing pt's care (in minutes): 25
== END 2022-04-06 14:29 | disposition home or self-care (01) ==
LOC: ER 15:32 → ERHOLD 18:21 → 2ND 19:21
PROVIDERS: ADMIT Internal Medicine; ATTEND Internal Medicine
DX: R10.9 Unspecified abdominal pain (principal); R11.2 Nausea with vomiting, unspecified; K57.30 Diverticulosis of large intestine without perforation or abscess without bleeding; I10 Essential (primary) hypertension; Z20.822 Contact with and (suspected) exposure to COVID-19
CPT/HCPCS: 96361; 85025 ×2; 80048; 36415 ×2; 83690; 80053 ×2; 74177; 74018; 96360; 99285; 87811; Q9967; J3480; J1650 ×2; J7120 ×4; J0744 ×4; G0378